=== PATIENT | female | born 1990 | race Caucasian/White ===

== ENCOUNTER 2021-09-18 11:41 | Emergency (ER) | payer OTHER ==
[2021-09-18 12:12] VITALS: BP 125/84; PULSE 83; RESP 19; TEMP 97.9; BMI 21.2
[2021-09-18] MEDS ORDERED: SODIUM CHLORIDE 0.9% 1000 ML INFUS.BAG IV ONE (12:50)
[2021-09-18] MEDS ORDERED: SODIUM CHLORIDE 0.9% 500 ML INFUS.BAG IV ONE (12:50)
[2021-09-18 13:42] LABS: BASO % 0.5 % (0-2.0); EOS % 1.3 % (0-4.5); HEMATOCRIT 41.3 % (32.4-45.2); HEMOGLOBIN 14.1 GM/dL (10.7-15.3); LYMPH % 23.8 % (8-40); MCH 30.9 pg (25.7-33.7); MCHC 34.2 g/dl (32.0-36.0); MEAN CELL VOLUME 90.3 fl (80-96); MEAN PLT VOLUME 7.5 fl (7.5-11.1); MONO % 7.8 % (3.8-10.2); NEUT % 66.6 % (42.8-82.8); PLATELET COUNT 299 10^3/uL (134-434); RBC 4.57 M/mm3 (3.60-5.2); RDW 13.4 % (11.6-15.6); WHITE BLOOD COUNT 8.5 K/mm3 (4.0-10.0)
[2021-09-18 14:07] LABS: OPIATES, URI NEGATIVE (NEGATIVE)
[2021-09-18 14:08] LABS: COCAINE, UR NEGATIVE (NEGATIVE); METHADONE, UR NEGATIVE (NEGATIVE); PHENCYCLIDINE,URINE NEGATIVE (NEGATIVE); URINE AMPHETAMINES NEGATIVE (NEGATIVE); URINE BENZODIAZEPINES NEGATIVE (NEGATIVE)
[2021-09-18 14:09] LABS: CALCIUM 9.3 mg/dL (8.5-10.1)
[2021-09-18 14:10] LABS: URINE BARBITURATES NEGATIVE (NEGATIVE)
[2021-09-18 14:10] LABS: ALBUMIN 4.7 g/dl (3.4-5.0); BLOOD UREA NITROGEN 10.7 mg/dL (7-18)
[2021-09-18 14:13] LABS: CREATININE 0.7 mg/dL (0.55-1.3)
[2021-09-18 14:14] LABS: TOT PROT 7.6 g/dl (6.4-8.2)
[2021-09-18 14:15] LABS: BILIRUBIN,TOTAL 0.7 mg/dL (0.2-1)
== END 2021-09-18 15:08 | disposition home or self-care (01) ==
LOC: JERFT 11:41
DX: R40.0 Somnolence (principal)
CPT/HCPCS: 36415; 80053; 80307; 85025; 99283-25

== ENCOUNTER 2022-09-23 15:14 | Emergency (ER) | payer OTHER ==
[2022-09-23 15:30] VITALS: BP 121/80; PULSE 88; RESP 18; TEMP 98.2; BMI 21.9
[2022-09-23] MEDS ORDERED: FAMOTIDINE 20 MG/50 ML IVPB 20 MG/50 ML MG IVPB ONE ×2 (16:30→16:39)
[2022-09-23] MEDS ORDERED: SODIUM CHLORIDE 1,000 ML IV STA (16:30)
[2022-09-23] MEDS ORDERED: DEXAMETHASONE SOD PHOSPHATE 10 MG/1 ML VIAL IM ONE (16:30)
[2022-09-23] MEDS ORDERED: DEXAMETHASONE SOD PHOSPHATE 10 MG/1 ML VIAL ONE (16:39)
[2022-09-23 17:14] LABS: BASO % 0.1 % (0-2.0); EOS % 1.2 % (0-4.5); HEMATOCRIT 42.8 % (32.4-45.2); HEMOGLOBIN 14.7 GM/dL (10.7-15.3); LYMPH % 5.9 % (8-40); MCH 30.5 pg (25.7-33.7); MCHC 34.2 g/dl (32.0-36.0); MEAN CELL VOLUME 89.1 fl (80-96); MEAN PLT VOLUME 7.8 fl (7.5-11.1); MONO % 2.8 % (3.8-10.2); PLATELET COUNT 291 10^3/uL (134-434); RBC 4.81 M/mm3 (3.60-5.2); RDW 12.6 % (11.6-15.6); WHITE BLOOD COUNT 11.2 K/mm3 (4.0-10.0)
[2022-09-23 17:23] LABS: POTASSIUM 4.3 mmol/L (3.5-5.1)
[2022-09-23 17:25] LABS: CALCIUM 9.4 mg/dL (8.5-10.1)
[2022-09-23 17:26] LABS: ALBUMIN 4.3 g/dl (3.4-5.0); BLOOD UREA NITROGEN 10.3 mg/dL (7-18)
[2022-09-23 17:29] LABS: CREATININE 0.8 mg/dL (0.55-1.3)
[2022-09-23 17:30] LABS: BILIRUBIN,TOTAL 0.4 mg/dL (0.2-1); INR 0.97 (0.83-1.09); PROTHROMBIN TIME (PATIENT) 11.2 SEC (9.7-13.0); TOT PROT 7.4 g/dl (6.4-8.2)
[2022-09-23 17:33] LABS: ACTIVATED PTT 29.1 SECONDS (25.2-36.5)
== END 2022-09-23 17:52 | disposition home or self-care (01) ==
LOC: JERFT 15:14
PROC: 3E033GC Introduction of Other Therapeutic Substance into Peripheral Vein, Percutaneous Approach (ICD-10-PCS; principal; 2022-09-23)
PROC: 3E033GC Introduction of Other Therapeutic Substance into Peripheral Vein, Percutaneous Approach (ICD-10-PCS; 2022-09-23)
PROC: 3E023GC Introduction of Other Therapeutic Substance into Muscle, Percutaneous Approach (ICD-10-PCS; 2022-09-23)
DX: R21 Rash and other nonspecific skin eruption (principal); R22.0 Localized swelling, mass and lump, head; L50.9 Urticaria, unspecified
CPT/HCPCS: 36415; 80053; 84703; 85025; 85610; 85730; 99284-25; J1100